=== PATIENT | female | born 1940 | race Two or more races ===

== ENCOUNTER 2024-08-14 11:53 | Emergency (ER) | payer MEDICARE, SELFPAY ==
[2024-08-14 11:56] VITALS: BP 111/60; PULSE 59; RESP 16; RESP 19; TEMP 36.8; O2SAT 99; BMI 33.8
--- NOTE | 2024-08-14 11:56 | PC.NURSE ---
DARLENE; per EMS report, pt coming from home s/p AMS after taking one tab of oxycodone 325mg for pain. Pt has had recent shoulder surgery to the R. An hour after pt took oxycodone, pt became altered. LKN was at 1030. Pt has hx of hypertension. FSBS was 101. Pt 88% on RA; we put pt on 6L of NC and got her sats up to 99%. Pt connected to monitors at this time.
--- NOTE | 2024-08-14 12:09 | EKG_ITS ---
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
--- NOTE | 2024-08-14 12:09 | XR_ITS ---
Examination: CT brain head without contrast. 2-D sagittal coronal reconstructions Date and time of exam:August 14, 2024 1310 hours Comparison March 08, 2010 INDICATIONS: Onset altered mental status today CTDI: vol (mGy):59.6 DLP: (mGycm):1233 Technique: Multiple CT axial sections of the brain have been obtained, 5 mm slice thickness. Contrast has not been administered. 2-D sagittal, coronal reconstructions have been obtained Low dose protocols were performed. One or more of the following dose reduction techniques were used; automated exposure control, adjustment of the mA and/or KV according to patient size, use of iterative reconstruction technique. Findings: No significant ventricular enlargement. Intra-axial or extra-axial hemorrhage density is not seen. No mass effect or midline shift Basal cisterns are not remarkable. Fourth ventricle is midline. Cranial vault intact. Impression: Negative for acute hemorrhage, mass effect or midline shift Clinical correlation advised and follow-up accordingly
--- NOTE | 2024-08-14 12:10 | PC.NURSE ---
PT WITH ABDUCTOR PILLOW IN PLACE TO RIGHT ARM/SHOULDER
--- NOTE | 2024-08-14 12:11 | PD.EDAMS ---
Altered Mental Status RME/HPI General Chief Complaint: Altered Mental Status Stated Complaint: AMS Time Seen by Provider: 08/14/24 12:08 Arrival date/time: 08/14/24 11:53 RME / HPI RME / HPI narrative: 84-year-old female patient was brought in by EMS for evaluation regarding altered mental status. Patient last well-known time was 1030 today, severity of symptoms moderate. patient is confused. Patient had right shoulder replacement 2 days ago, and was prescribed Oxy, patient took first dose of oxycodone at 9 AM today.. Patient follows simple commands. There was no weakness noted. No fever was noted. No medication was given. Related Data Home Medications ?Medication ?Instructions ?Recorded ?Confirmed atenolol 50 mg tablet 50 mg PO QDAY ##30 04/10/17 11/02/21 gabapentin 400 mg capsule 400 mg PO QDAY 02/19/20 11/02/21 amitriptyline 50 mg tablet 50 mg PO QDAY 02/27/20 11/02/21 Previous Rx's ?Medication ?Instructions ?Recorded omeprazole 40 mg capsule,delayed 40 mg PO QDAY #30 caps 12/26/19 release hydrocodone 5 mg-acetaminophen 325 1 tab PO Q6H PRN pain #20 tabs 11/27/22 mg tablet diclofenac sodium 1 % topical gel 4 g topical QID PRN Joint pain 01/17/24 #100 grams ketorolac 10 mg tablet 10 mg PO TID PRN pain 5 days #20 08/14/24 tabs Allergies Allergy/AdvReac Type Severity Reaction Status Date / Time codeine Allergy Intermediate Hallucinati Verified 08/13/23 07:29 ng zolpidem [From Ambien] Allergy Mild Hallucinati Verified 08/13/23 07:29 ng Review of Systems Review of Systems Narrative Review of Systems: Review of system reviewed and within normal limits except mentioned in HPI ED Exam Narrative Physical exam: VITAL SIGNS: Reviewed. GENERAL APPEARANCE: Alert and oriented x 1, follows simple commands, no acute distress, HEAD AND FACE: Non-traumatic. ENT: PERRL, pink conjunctivitis, eyelid no trauma, Mucous membrane moist. NECK: Supple, nontender, no nuchal rigidity. CHEST: No tenderness, no crepitus, no paradoxical movement, no retractions. LUNGS: Clear, well ventilated, symmetric, no rales, no wheezing, no ronchi, no stridor, good breath sounds bilaterally. HEART: Regular rate, regular rhythm, no murmur, no gallops. ABDOMEN: Soft, positive bowel sounds, nondistended, no guarding, nontender, no rebound, no masses, RECTAL: Deferred. GENITAL: Deferred. NEUROLOGICAL: Gross motor function intact sensory function intact, Appropriate for age. MUSCULOSKELETAL: low back nontender, full range of motion. EXTREMITIES: Right shoulder on a bandage dressing, on arm sling, limited range of motion. SKIN: Color pink, dry, no rash, no lacerations, no abrasions, no contusions. LYMPHATICS: Deferred. Course Quality Measures none Orders Category Date Time Status EKG (ED ONLY) *Do not use* NOW Care 08/14/24 12:[address] head/brain wo con Stat Exams 08/14/24 12:09 Completed EKG (ED Only) Stat Exams 08/14/24 12:09 Draft CBC Stat Lab 08/14/24 12:28 Completed Comprehensive Metabolic Panel Stat Lab 08/14/24 12:28 Completed Partial Thromboplastin Time Stat Lab 08/14/24 12:28 Completed Troponin I Stat Lab 08/14/24 12:28 Completed Ketorolac Inj [Toradol Inj] Med 08/14/24 15:02 Discontinued 30 mg IVP X1 ONE NALOXONE INJ (Syringe) [Narcan Inj (Syringe)] Med 08/14/24 12:18 Discontinued 1 mg IV X1 ONE Sodium Chloride 0.9% 1000 ml [Ns] 1,000 ml Med 08/14/24 12:10 Discontinued IV 999 mls/hr Vital Signs Vital signs: Vital Signs Temperature 98.2 F 08/14/24 11:56 Pulse Rate 59 L 08/14/24 11:56 Respiratory Rate 19 08/14/24 11:56 Blood Pressure 111/60 08/14/24 11:56 Pulse Oximetry (%) 99 08/14/24 11:56 Oxygen Delivery Method Room Air 08/14/24 11:56 Altered Mental Status MDM Narrative MDM Narrative:: 84-year-old female patient was brought in by EMS for evaluation regarding altered mental status. Patient last well-known time was 1030 today, severity of symptoms moderate. patient is confused. Patient had right shoulder replacement 2 days ago, and was prescribed Oxy, patient took first dose of oxycodone at 9 AM today.. Patient follows simple commands. There was no weakness noted. No fever was noted. No medication was given. Patient was given Narcan 1 mg IV, with complete resolution of symptoms. Workup today all came back unremarkable including CT scan of the head. Patient was advised to call the surgeon regarding Percocet or can cut the Percocet into one fourth and try and observe closely however patient was prescribed Toradol. Patient data External records reviewed:: None Clinical information provided by:: none Social determinants that could affect healthcare access:: none Patient has the following chronic illnesses:: Hypertension How is presenting disease/condition affected by chronic disease/condition?: uneffected by Evaluation data The following diagnostics were reviewed and interpreted by me:: lab results, radiology exam(s) and EKG tracing(s) Lab and/or radiology exams considered but not ordered:: None Interpretation Summary: EKG as interpreted by me showed normal sinus rhythm ventricular rate of 62 bpm, no ST segment elevation depression noted. CT scan of the head came back unremarkable the rest of the workup today all came back normal including normal CBC and normal CMP. Medications / Prescriptions Medications or Prescriptions considered but not ordered:: None Medication administrations:: Medication Administration History Discontinued Medications Sodium Chloride (Ns) 1,000 mls @ 999 mls/hr IV .Q1H1M ONE Stop: 08/14/24 13:10 Last Infusion: 08/14/24 14:54 Dose: Infused Documented By: Admin: 08/14/24 12:37 Dose: 999 mls/hr Documented By: Ketorolac Tromethamine (Ketorolac Inj 30 Mg/Ml Vial) 30 mg IVP X1 ONE Stop: 08/14/24 15:03 Last Admin: 08/14/24 15:20 Dose: 30 mg Documented By: Naloxone HCl (Naloxone Inj 1 Mg/Ml Syringe 2 Ml) 1 mg IV X1 ONE Stop: 08/14/24 12:19 Last Admin: 08/14/24 12:32 Dose: 1 mg Documented By: Toradol IV, IV fluids for hydration Narcan Consultations Consultation(s) initiated? (list below): No Diagnosis Differential diagnosis altered mental status: altered mental status, delirium and other (Adverse effect of narcotics) Most likely diagnosis given after review of the tests above:: Altered mental status, adverse effect of Percocet Admission Indicated Admission indicated?: not indicated Admission Request Was there a request for admission?: No Disposition Plan Disposition Plan: Discharge Discharge Attestation Discharge Attestation: The patient and all family members were given an opportunity to ask questions and understood the discharge instructions. Discharge instructions specifically effects, indications for sooner follow up or return to the emergency department, and the expected course of current diagnosis. Patient condition: Stable Discharge Plan Plan Patient Disposition: HOME (Self Care) Disposition Comment: stable Prescriptions/Referrals Prescriptions/Med Rec: New ketorolac 10 mg tablet 10 mg PO TID PRN (Reason: pain) 5 Days Qty: 20 0RF No Action atenolol 50 MG tablet 50 mg PO QDAY Qty: 30 amitriptyline 50 mg tablet 50 mg PO QDAY Patient Comments: TOME REBECCA TABLETA POR VIA ORAL AL ACOSTARSE omeprazole 40 mg capsule,delayed release(DR/EC) 40 mg PO QDAY Qty: 30 3RF Rx Instructions: TAKES PRN PER PATIENT gabapentin 400 mg Capsule 400 mg PO QDAY hydrocodone-acetaminophen 5-325 mg tablet 1 tab PO Q6H MDD 4 PRN (Reason: pain) Qty: 20 0RF diclofenac sodium 1 % gel 4 g topical QID PRN (Reason: Joint pain) Qty: 100 0RF Rx Instructions: apply to single knee, ankle, foot; for foot includes sole/toes/top of foot Referrals: Brad Meng MD [Primary Care Provider] - In 1 week Problem List Clinical Impression: Altered mental status, Adverse effect of other opioids, initial encounter Patient/Caregiver Discharge Instructions Discharge Activity: activity as tolerated Education Materials: ED Confusion Additional Instructions: Thank you for the opportunity for serving you today. You are stable for discharged . You are advised to: Follow-up with your PCP in 1 to 2 days Return to ED for worsening of symptoms Increase oral fluids Talk to your surgeon regarding your Percocet for now you can hold off on giving the medication or you can cut into one fourth and observe closely. I give you a prescription for Toradol for pain as needed for pain Print Language: Albanian Stand Alone Forms: Catherine Award Info., Patient Portal Info Letter
[2024-08-14 12:30] VITALS: BP 105/48; PULSE 63; RESP 16; TEMP 36.8; O2SAT 96
[2024-08-14] MEDS: NALOXONE INJ 1 MG/ML SYRINGE 2 ML IV (12:32)
[2024-08-14] MEDS: SODIUM CHLORIDE 0.9% 1000 ML 1,000 ML 999 ML IV (12:37)
[2024-08-14 12:39] LABS: Basophils % (Auto) 1 % (0-2.5); Eosinophils # (Auto) 0.2 Thou/mm3 (0.0-0.5); Eosinophils % (Auto) 3 % (0-10); Hematocrit 31.1 % (36.0-46.0); Hemoglobin 9.9 g/dL (12.0-16.0); Immature Granulocytes % (Auto) 0 % (0-0); Immature Granulocytes Auto 0.02 Thou/mm3 (0.00-0.00); Lymphocytes % (Auto) 31 % (10-50); Mean Corpuscular HGB Conc 31.8 g/dl (31.0-37.0); Mean Corpuscular Volume 91 fL (80-100); Monocytes # (Auto) 0.5 Thou/mm3 (0.0-0.8); Monocytes % (Auto) 7 % (0-12); Neutrophils # (Auto) 3.6 Thou/mm3 (1.8-7.7); Neutrophils % (Auto) 57 % (37-80); Nucleated Red Blood Cell % 0 /100 WBC (0); Platelet Count 167 Thou/mm3 (140-440); RDW Standard Deviation 50.4 fL (36.4-46.3); Red Blood Count 3.41 Miln/mm3 (4.00-5.20); White Blood Count 6.2 Thou/mm3 (3.6-11.0)
[2024-08-14 13:00] LABS: Alanine Aminotransferase 18 U/L (10-49); Albumin, Serum 3.9 gm/dL (3.4-4.8); Albumin/Globulin Ratio 1.7 (1.2-2.2); Alkaline Phosphatase 76 U/L (46-116); Anion Gap 7 (7-16); Aspartate Amino Transferase 24 U/L (0-34); BUN/Creatinine Ratio 31 Ratio (12-20); Bilirubin,Total 0.2 mg/dL (0.3-1.2); Blood Urea Nitrogen 31 mg/dL (9-23); Calcium 8.8 mg/dL (8.3-10.6); Calcium (Corrected) 8.9 mg/dL (8.5-10.1); Carbon Dioxide 25.9 mMol/L (20.0-31.0); Chloride 104 mMol/L (98-107); Globulin 2.3 gm/dL (2.3-3.5); Glucose 122 mg/dL (74-106); Osmolality,Calculated 281 (275-295); Potassium 4.6 mMol/L (3.4-5.1); Sodium 137 mMol/L (136-145); Total Protein 6.2 gm/dL (5.7-8.2); Troponin I < 0.020 ng/mL (0.0-0.045); eGFR 55 See Note
[2024-08-14 13:13] LABS: Partial Thromboplastin Time 23.1 Seconds (22.0-36.0)
[2024-08-14 13:45] VITALS: BP 129/58; PULSE 65; RESP 15; TEMP 36.4; O2SAT 95
[2024-08-14 14:50] VITALS: BP 129/61; PULSE 65; RESP 14; TEMP 36.5; O2SAT 93
[2024-08-14 14:53] VITALS: PULSE 64; RESP 18; RESP 93; O2SAT 96
[2024-08-14] MEDS: KETOROLAC INJ 30 MG/ML VIAL IVP (15:20)
[2024-08-14 16:02] VITALS: BP 125/59; PULSE 67; RESP 19; TEMP 36.4; O2SAT 95
== END 2024-08-14 16:07 | disposition home or self-care (01) ==
PROVIDERS: Nurse Practitioner Family; Emergency Provider Emergency Medicine; PCP Family Medicine
DX: R41.82 Altered mental status, unspecified (principal); T40.2X5A Adverse effect of other opioids, initial encounter; R94.31 Abnormal electrocardiogram [ECG] [EKG]
CPT/HCPCS: 36415; 70450; 80053; 81001; 84484; 85025; 85730; 93005; 96361; 96374; 99284; J1885; J2310; J7030

== ENCOUNTER → 2024-09-26 | Outpatient (CLI) | payer MEDICARE, SELFPAY ==
--- NOTE | 2024-09-26 10:40 | XR_ITS ---
Examination: Lumbar spine, 5 views Technique: Lumbar spine AP, lateral, coned lateral lower lumbar spine, bilateral obliques 5 views Exam date and time: September 26, 2024 1103 hours INDICATIONS: Lower back pain radiating to the left leg beginning 4 days ago. FINDINGS: Severe osteopenia Severe lumbar spondylosis Advanced diffuse facet arthropathy Prominent chronic osteoporotic compression L3 Grade 1 anterolisthesis L4 on L5 Moderate to advanced degenerative disc disease L1-L2, L2-L3, L4-L5, L5-S1 IMPRESSION: Significant lumbar degenerative disc disease with severe spinal stenosis
== END | disposition home or self-care (01) ==
PROVIDERS: PCP Family Medicine; Referring Provider Family Medicine; Visit Provider Family Medicine
DX: M51.369 Other intervertebral disc degeneration, lumbar region without mention of lumbar back pain or lower extremity pain (principal); M48.061 Spinal stenosis, lumbar region without neurogenic claudication
CPT/HCPCS: 72110

== ENCOUNTER → 2024-10-21 | Outpatient (CLI) | payer MEDICARE, SELFPAY ==
--- NOTE | 2024-10-21 08:00 | XR_ITS ---
Examination: MRI lumbar spine without contrast Date and time of exam: October 21, 2024 0743 hours Comparison October 21, 2015 INDICATIONS: Low back pain beginning 2 weeks ago, chronic low back pain radiating to the left hip and down the left leg Technique: Multiple MRI axial and sagittal sections lumbar spine. Sagittal T2-weighted images, TR 3500, TE 118 T1 weighted transverse sections, TR 688 T8.5, T2-weighted sagittal sections T1 weighted sagittal sections TR 621, TE 30 T2 axial sections, TR 4, 190, TE 84. Findings: Grade 1 anterolisthesis L4 on L5 Chronic osteoporotic compression L3 No acute lumbar fracture Diffuse lumbar disc desiccation Moderate to advanced disc narrowing L5-S1 L5-S1 4 mm central lumbar disc bulge with prominent facet arthropathy, disc bulge extending to the foraminal regions with mild bilateral L5 ganglionic compression L4-L5 moderate to severe overall spinal stenosis, axial image 5, prominent facet arthropathy and thickening of ligamentum flavum but no ganglionic compression L3-L4 foraminal disc bulges but no ganglionic compression L2-L3 foraminal disc bulges but no ganglionic compression L1-L2 no disc protrusion IMPRESSION: L5-S1 4 mm central lumbar disc bulge with mild bilateral L5 ganglionic compression L4-L5 moderate to severe overall spinal stenosis as above
== END | disposition home or self-care (01) ==
LOC: SMRI 07:29
PROVIDERS: PCP Family Medicine; Referring Provider Family Medicine; Visit Provider Family Medicine
DX: G95.20 Unspecified cord compression (principal); M48.061 Spinal stenosis, lumbar region without neurogenic claudication
CPT/HCPCS: 72148

== ENCOUNTER 2025-04-18 08:53 | Emergency (ER) | payer MEDICARE, SELFPAY ==
[2025-04-18 09:02] VITALS: BP 164/80; PULSE 71; RESP 18; TEMP 37.1; O2SAT 98
[2025-04-18] MEDS: KETOROLAC INJ 30 MG/ML VIAL IM (09:19)
--- NOTE | 2025-04-18 10:37 | EDNOTE_ITS ---
ED Skin Abcess FB-RME/HPI General Chief complaint: Skin/Abscess/Foreign Body Stated complaint: LEFT SIDE/ABD EXTERNAL PAIN POST FALL X 2WKS, RASH Time Seen by Provider: 04/18/25 09:11 Arrival date/time: 04/18/25 08:53 85-year-old female presents to the emergency department today for complaint of left hip pain left flank pain patient reports a painful rash to that area Limitations: no limitations Related Data Home Medications ?Medication ?Instructions ?Recorded ?Confirmed atenolol 50 mg tablet 50 mg PO QDAY ##30 04/10/17 11/02/21 gabapentin 400 mg capsule 400 mg PO QDAY 02/19/2010/12 amitriptyline 50 mg tablet 50 mg PO QDAY 02/27/2010/12 Previous Rx's ?Medication ?Instructions ?Recorded omeprazole 40 mg capsule,delayed 40 mg PO QDAY #30 cap s 12/26/19 release hydrocodone 5 mg-acetaminophen 325 1 tab PO Q6H PRN pa in #20 tabs 11/27/22 mg tablet diclofenac sodium 1 % topical gel 4 g topical QID PRN Joint pain 01/17/24 #100 grams ibuprofen 600 mg tablet 600 mg PO Q6H PRN pain #30 t abs 04/18/25 prednisone 10 mg tablet 30 mg (3 x 10 mg) PO BID 3 d ays 04/18/25 #18 tabs valacyclovir 1 gram tablet 1,000 mg PO TID 7 days #21 tabs 04/18/25 Allergies Allergy/AdvReac Type Severity Reaction Status Date / Time codeine Allergy Intermediate Hallucinati Verified 04/18/25 08:59 ng zolpidem (From Ambien) Allergy Mild Hallucinati Verified 04/18/25 08:59 ng Review of Systems Review of Systems Systems Reviewed: All systems reviewed, normal except as documented Constitutional Constitutional: Reports system reviewed and no additional complaints, except as documented, Denies fever(s) and Denies headache(s) Eyes Eyes: Reports system reviewed and no additional complaints, except as documented and Denies blurry vision ENT Ears, Nose, Mouth, and Throat: Reports system reviewed and no additional complaints, except as documented, Denies headache(s), Denies nasal congestion and Denies nasal discharge Cardiovascular Cardiovascular: Reports system reviewed and no additional complaints, except as documented, Denies chest pain and Denies dyspnea Respiratory Respiratory: Reports system reviewed and no additional complaints, except as documented, Denies chest congestion, Denies cough and Denies dyspnea Gastrointestinal Gastrointestinal: Reports system reviewed and no additional complaints, except as documented and Denies abdominal pain Integumentary/Breasts Skin/Breast: Reports system reviewed and no additional complaints, except as documented and Reports rash (Painful rash left hip and flank) Neurologic Neurologic: Reports system reviewed and no additional complaints, except as documented, Reports as per HPI and Denies headache(s) Past Medical History Past Medical History NEUROLOGIC: Negative Neurological Disorders or Seizures CARDIAC: Positive Cardiac Disorders and Hypertension; Negative Congestive Heart Failure, Edema, Cellulitis or Varicose Veins RESPIRATORY: Negative Chronic Obstructive Pulmonary Disease (COPD), Asthma, Pneumonia, Tuberculosis or Sleep Apnea GASTROINTESTINAL: Positive Gastrointestinal Disorders, Gall Bladder Disease, Esophageal Varices, Ulcer, Hiatal Hernia and Gastroesophageal Reflux Disease; Negative Hepatitis or Colorectal Cancer GENITOURINARY: Negative Genitourinary Disorders or Renal Disease REPRODUCTIVE: Positive Previous Pregnancies; Negative Breast Cancer or Pelvic Inflammatory Disease MUSCULOSKELETAL: Positive Musculoskeletal Disorders, Arthritis and Degenerative Joint Disease; Negative Bone Cancer ENT: Positive Cataracts ENDOCRINE: Negative Endocrine Disorders, Diabetes Mellitus Type 1 or Diabetes Mellitus Type 2 HEMATOLOGIC: Negative Blood Disorders or Sickle Cell Disease OTHER HISTORY: Positive Falls, Chicken Pox and Measles; Negative Hospitalization, Autoimmune Disease, Down Syndrome, Developmental Delay, Shingles, Blood Transfusions, Blood Transfusion Reaction, Anesthesia Reactions, Organ Transplant, Chemotherapy, Radiation Therapy, MRSA, Vancomycin- Resistant Enterococci, Mumps, Clostridium Difficile, Cancer, Breast Cancer, Cervical Cancer, Colorectal Cancer or Lung Cancer Family History FAMILY HISTORY: Negative Family Psychiatric Problems, Family Respiratory Di sorders, Family Cardiac Disorders, Family Gastrointestinal Problems, Family Cancer, Family Surgery or Family Anesthesia Reaction Surgical History SURGICAL: Positive Ear Surgery, Eye Surgery, Abdominal Surgery, Joint Replacement and Section; Negative Cardiac Surgery, Pacemaker, Endocrine Surgery, Nephrectomy, Neurologic Surgery, Mastectomy or Organ Transplant Social History SMOKING STATUS: Never smoker SECOND HAND EXPOSURE: No SUBSTANCE USE: does not use ED Exam General Limitations: Present no limitations General appearance: Present alert and in no apparent distress Head Head exam: Present atraumatic Eye Eye exam: Present normal appearance, PERRL and EOMI ENT ENT exam: Present normal exam, normal oropharynx and mucous membranes moist Neck Neck exam: Present normal inspection, full ROM and trachea midline Chest Chest inspection: Present normal inspection and symmetric chest wall rise Respiratory Respiratory exam: Present normal lung sounds bilaterally Cardiovascular Cardiovascular exam: Present regular rate, normal rhythm and normal heart sounds Abdominal Exam Abdominal exam: Present soft and normal bowel sounds Extremities Exam Extremities exam: Present normal inspection and full ROM Back Exam Back exam: Present normal inspection and full ROM Neurological Exam Neurological exam: Present alert, oriented X3 and CN II-XII intact Psychiatric Psychiatric exam: Present normal affect and normal mood Skin Skin exam: Present warm, dry and other (Painful rash left hip and flank) Course Quality Measures none Orders Category Date Time Status Ketorolac Inj [Toradol Inj] Med 04/18/25 09:11 Discontinued 30 mg IM X1 ONE Vital Signs Vital signs: Vital Signs Temperature 98.8 F 04/18/25 09:02 Pulse Rate 71 04/18/25 09:02 Respiratory Rate 18 04/18/25 09:02 Blood Pressure 164/80 H 04/18/25 09:02 Pulse Oximetry (%) 98 04/18/25 09:02 Oxygen Delivery Method Room Air 04/18/25 09:02 O2 saturation 98% room air with normal limits Skin / Abscess / Foreign Body MDM Narrative MDM Narrative:: 85-year-old female presents to the emergency department today for complaint of left hip pain left flank pain patient reports a painful rash to that area On exam patient has painful rash consistent with shingles Patient be treated symptomatically should symptoms persist or worsen patient is instructed return for reevaluation Patient data External records reviewed:: [facility] previous records Clinical information provided by:: patient Social determinants that could affect healthcare access:: none Patient has the following chronic illnesses:: See history How is presenting disease/condition affected by chronic disease/condition?: uneffected by Evaluation data The following diagnostics were reviewed and interpreted by me:: other (specify) (N/A) Lab and/or radiology exams considered but not ordered:: Considered not indicated Interpretation Summary: N/A Medications / Prescriptions Medications or Prescriptions considered but not ordered:: Given Medication administrations:: Medication Administration History Discontinued Medications Ketorolac Tromethamine (Ketorolac Inj 30 Mg/Ml Vial) 30 mg IM X1 ONE Stop: 04/18/25 09:12 Last Admin: 04/18/25 09:19 Dose: 30 mg Documented By: Given Consultations Consultation(s) initiated? (list below): No Diagnosis Skin/Abscess Differential Diagnosis: abscess of skin or subcutaneous tissue, cellulitis and eczema Most likely diagnosis given after review of the tests above:: Shingles Admission Indicated Admission indicated?: not indicated Admission Request Was there a request for admission?: No Disposition Plan Disposition Plan: Discharge Discharge Attestation Discharge Attestation: The patient and all family members were given an opportunity to ask questions and understood the discharge instructions. Discharge instructions specifically effects, indications for sooner follow up or return to the emergency department, and the expected course of current diagnosis. Patient condition: Stable Discharge Plan Plan Patient Disposition: HOME (Self Care) Discharge Disposition comment: Stable Prescriptions/Referrals Prescriptions/Med Rec: New valacyclovir 1 gram tablet 1,000 mg PO TID 7 Days Qty: 21 0RF prednisone 10 mg tablet 30 mg PO BID 3 Days Qty: 18 0RF ibuprofen 600 mg tablet 600 mg PO Q6H PRN (Reason: pain) Qty: 30 0RF No Action atenolol 50 MG tablet 50 mg PO QDAY Qty: 30 amitriptyline 50 mg tablet 50 mg PO QDAY Patient Comments: TOME REBECCA TABLETA POR VIA ORAL AL ACOSTARSE omeprazole 40 mg capsule,delayed release(DR/EC) 40 mg PO QDAY Qty: 30 3RF Rx Instructions: TAKES PRN PER PATIENT gabapentin 400 mg Capsule 400 mg PO QDAY hydrocodone-acetaminophen 5-325 mg tablet 1 tab PO Q6H MDD 4 PRN (Reason: pain) Qty: 20 0RF diclofenac sodium 1 % gel 4 g topical QID PRN (Reason: Joint pain) Qty: 100 0RF Rx Instructions: apply to single knee, ankle, foot; for foot includes sole/toes/top of foot Problem List Clinical Impression: Shingles Patient/Caregiver Discharge Instructions Education Materials: ED Shingles (Herpes Zoster) Additional Instructions: Please follow up with your primary care doctor in the next 24-48hrs for any worsening symptoms return here immediately Print Language: Bengali Stand Alone Forms: Catherine Award Info., Patient Portal Info Letter PA/[employer] EMBOSSING PRESS OPERATOR Supervising Physician PA/[employer] EMBOSSING PRESS OPERATOR Supervising Physician: Dr [email or web address]
== END 2025-04-18 09:30 | disposition home or self-care (01) ==
PROVIDERS: Emergency Provider Emergency Medicine
DX: B02.9 Zoster without complications (principal)
CPT/HCPCS: 96372; 99283; J1885